=== PATIENT | female | born 1990 | race Caucasian/White ===

== ENCOUNTER 2016-11-01 18:12 | Emergency (ER) | payer OTHER ==
[~2016-11-01 18:12] MED LIST: ACETAMINOPHEN PO; ALPRAZOLAM; DOXYCYCLINE HY100 M3 PO; FLAGYL PO; METHADONE PO; MOTRIN400 MG PO; NO MEDICATIONS; NORFLEX100 MG PO; PERCOCET5/325 PO; VISTARIL PO; VOLTAREN50 MG PO
[2016-11-01 18:15] LABS: URINE SOURCE CLEAN CATCH
[2016-11-01 18:19] LABS: URINE APPEARANCE CLEAR; URINE BILIRUBIN NEG (NEG); URINE BLOOD NEG (NEG); URINE COLOR YELLOW; URINE GLUCOSE NEG (NORM); URINE KETONE NEG (NEG); URINE LEUKOCYTE ESTERASE 1+ (NEG); URINE NITRATE NEG (NEG); URINE PROTEIN TRACE (NEG); URINE UROBILINOGEN 0.2 MG/DL (NORM)
[2016-11-01 18:20] LABS: MICRO INDICATED? YES
[2016-11-01 18:26] LABS: URINE WBC 50-100 /[HPF] (0-5)
[2016-11-01 18:27] LABS: CULTURE INDICATED? YES; URINE BACTERIA 2+ (NEG); URINE MUCUS PRESENT; URINE SQUAMOUS EPITHELIAL CELL MODERATE /[HPF]
[2016-11-05 08:11] LABS: CHLAMYDIA TRACH Not Detected (Not Detected); N GONOR Detected (Not Detected)
== END 2016-11-01 19:03 | disposition home or self-care (01) ==
LOC: SED 18:12
PROVIDERS: Nurse Practitioner Family
DX: Z20.2 Contact with and (suspected) exposure to infections with a predominantly sexual mode of transmission (principal); N39.0 Urinary tract infection, site not specified; F17.210 Nicotine dependence, cigarettes, uncomplicated; Z79.899 Other long term (current) drug therapy
CPT/HCPCS: 81003; 84703; 87086; 87210; 87491; 87591; 87808; 87905; 96372; 99284; J0696

== ENCOUNTER 2017-01-07 06:44 | Emergency (ER) | payer OTHER ==
[2017-01-07] MEDS ORDERED: NO MEDICATIONS (06:50)
[2017-01-07 07:32] LABS: URINE SOURCE CLEAN CATCH
[2017-01-07 07:35] LABS: URINE APPEARANCE SL CLOUDY; URINE BLOOD 3+ (NEG); URINE COLOR ORANGE; URINE GLUCOSE NEG (NORM); URINE KETONE NEG (NEG); URINE LEUKOCYTE ESTERASE TRACE (NEG); URINE NITRATE NEG (NEG); URINE PH 5.5 (5-8); URINE PROTEIN 1+ (NEG); URINE SPECIFIC GRAVITY 1.025 (1.003-1.035)
[2017-01-07 07:39] LABS: MICRO INDICATED? YES; URINE BILIRUBIN NEG (NEG)
[2017-01-07 07:43] LABS: CULTURE INDICATED? NO; URINE BACTERIA NEG (NEG); URINE RBC 200-300 /[HPF] (0-2)
== END 2017-01-07 08:02 | disposition home or self-care (01) ==
LOC: SED 06:44
PROVIDERS: Emergency Medicine
DX: N94.6 Dysmenorrhea, unspecified (principal); R31.9 Hematuria, unspecified; F41.9 Anxiety disorder, unspecified; F17.200 Nicotine dependence, unspecified, uncomplicated; Z90.49 Acquired absence of other specified parts of digestive tract
CPT/HCPCS: 81003; 84703; 99284

== ENCOUNTER 2017-02-12 10:12 | Emergency (ER) | payer OTHER ==
[~2017-02-12] VITALS: Ht 165.1 cm; Wt 63.5 kg
== END 2017-02-12 10:43 | disposition home or self-care (01) ==
LOC: CED 10:12 → CFTX 10:12
DX: S05.02XA Injury of conjunctiva and corneal abrasion without foreign body, left eye, initial encounter (principal); H11.32 Conjunctival hemorrhage, left eye; F41.9 Anxiety disorder, unspecified; X58.XXXA Exposure to other specified factors, initial encounter; Y92.9 Unspecified place or not applicable
CPT/HCPCS: 99283